=== PATIENT | female | born 1990 | race Asian ===

== ENCOUNTER 2024-01-27 19:00 | Inpatient (IN) | payer OTHER ==
[2024-01-27 20:13] VITALS: BMI 27.1
[2024-01-27] MEDS: DEXTROSE 5%-LACTATED RINGERS 1,000 ML IV SCH (20:20)
[2024-01-27 20:45] LABS: BASO % 0.2 % (0-2.0); EOS % 0.8 % (0-4.5); HEMATOCRIT 31.2 % (32.4-45.2); HEMOGLOBIN 10.2 GM/dL (10.7-15.3); MCH 26.3 pg (25.7-33.7); MCHC 32.7 g/dl (32.0-36.0); MEAN CELL VOLUME 80.6 fl (80-96); MEAN PLT VOLUME 6.2 fl (7.5-11.1); MONO % 6.8 % (3.8-10.2); NEUT % 67.2 % (42.8-82.8); PLATELET COUNT 360 10^3/uL (134-434); RBC 3.88 M/mm3 (3.60-5.2); RDW 14.1 % (11.6-15.6); WHITE BLOOD COUNT 7.5 K/mm3 (4.0-10.0)
[2024-01-27 20:53] LABS: INR 0.96 (0.83-1.09); PROTHROMBIN TIME (PATIENT) 11.1 SEC (9.7-13.0)
[2024-01-27 20:55] LABS: ACTIVATED PTT 26.5 SECONDS (25.2-36.5)
[2024-01-27 21:05] LABS: POTASSIUM 3.9 mmol/L (3.5-5.1)
[2024-01-27 21:10] LABS: CREATININE 0.4 mg/dL (0.55-1.3)
[2024-01-27] MEDS: SODIUM CHLORIDE 500 ML IV STA (21:40)
[2024-01-27] MEDS: MISOPROSTOL 100 MCG TABLET PV SCH (21:51)
[2024-01-28] MEDS: SODIUM CHLORIDE 1,000 ML IV STA ×2 (06:10→08:45)
[2024-01-28] MEDS ORDERED: FENTANYL/BUPIVACAINE/NS/PF - PCEA - 50 ML DISP.SYRIN EP ONE ×2 (06:24→10:51)
[2024-01-28] MEDS ORDERED: NALOXONE HCL 0.4 MG/ML VIAL IVPUSH PRN (06:36)
[2024-01-28] MEDS ORDERED: BUPIVACAINE HCL/PF 0.25% (2.5MG/ML) 10 ML VIAL ONE (06:39)
[2024-01-28] MEDS: FENTANYL/BUPIVACAINE/NS/PF - PCEA - 50 ML DISP.SYRIN EP SCH (06:50)
[2024-01-28 07:37] VITALS: RESP 18
[2024-01-28] MEDS ORDERED: OXYTOCIN 30 UNITS in 0.9% NS 30 UNIT/500 ML INFUS.BAG IVPB ONE (08:16)
[2024-01-28] MEDS: OXYTOCIN 30 UNITS in 0.9% NS 30 UNIT/500 ML INFUS.BAG IVPB SCH (08:20)
[2024-01-28] MEDS ORDERED: OXYTOCIN 20 UNITS in 0.9% NS 20 UNIT/1,000 ML INFUS.BAG IV ONE (12:07)
[2024-01-28] MEDS: OXYTOCIN 20 UNITS in 0.9% NS 20 UNIT/1,000 ML INFUS.BAG IV SCH (12:45)
[2024-01-28] MEDS ORDERED: BENZOCAINE 28 GM HEMORRHOIDAL OINTMENT TP PRN (13:08)
[2024-01-28] MEDS ORDERED: WITCH HAZEL 50% (TUCKS) 40 PAD/JAR PAD TP PRN (13:08)
[2024-01-28 13:14] LABS: CORD BASE EXCESS -4.6 mmol/L (0-2); CORD HCO3 21.3 mmHg (20-29); CORD PCO2 42.1 mmHg (30-78); CORD pH 7.322 (7.14-7.44)
[2024-01-28 13:17] LABS: CORD BASE EXCESS -6.2 mmol/L (0-2); CORD PCO2 47.3 mmHg (30-78); CORD pH 7.265 (7.14-7.44)
[2024-01-28] MEDS ORDERED: ACETAMINOPHEN 325 MG TABLET (FP) ONE (14:39)
[2024-01-28] MEDS: ACETAMINOPHEN 325 MG TABLET (FP) PO PRN (14:42)
[2024-01-28] MEDS: IBUPROFEN 600 MG TABLET (FP) PO PRN (19:36)
[2024-01-29 07:37] LABS: BASO % 0.4 % (0-2.0); EOS % 0.6 % (0-4.5); HEMATOCRIT 25.1 % (32.4-45.2); LYMPH % 20.8 % (8-40); MCH 25.9 pg (25.7-33.7); MCHC 31.9 g/dl (32.0-36.0); MEAN CELL VOLUME 81.1 fl (80-96); MEAN PLT VOLUME 6.5 fl (7.5-11.1); MONO % 5.6 % (3.8-10.2); NEUT % 72.6 % (42.8-82.8); PLATELET COUNT 270 10^3/uL (134-434); RDW 14.4 % (11.6-15.6); WHITE BLOOD COUNT 12.1 K/mm3 (4.0-10.0)
[2024-01-29] MEDS: FERROUS SO4 325 MG TABLET (FP) PO SCH (18:28)
[2024-01-29] MEDS: DOCUSATE SODIUM 100 MG CAPSULE (FP) PO SCH (22:01)
[2024-01-30 09:29] VITALS: BP 105/63; PULSE 100; TEMP 98.6
== END 2024-01-30 12:30 | disposition home or self-care (01) | DRG 560 ==
LOC: JLDR 19:00 → J3W 01-28 16:30
PROVIDERS: ADMIT Obstetrics & Gynecology Maternal & Fetal Medicine; ATTEND Obstetrics & Gynecology Maternal & Fetal Medicine
PROC: 0HQ9XZZ Repair Perineum Skin, External Approach (ICD-10-PCS; principal; 2024-01-28)
PROC: 10E0XZZ Delivery of Products of Conception, External Approach (ICD-10-PCS; 2024-01-28)
DX: O75.89 Other specified complications of labor and delivery (principal); O70.0 First degree perineal laceration during delivery; Z3A.39 39 weeks gestation of pregnancy; Z37.0 Single live birth; R19.00 Intra-abdominal and pelvic swelling, mass and lump, unspecified site
CPT/HCPCS: 36415; 36600; 59409; 80048; 82803; 85025; 85610; 85730; 86780; 86850; 86900; 86901